=== PATIENT | female | born 1990 | race Caucasian/White ===

== ENCOUNTER 2020-07-05 12:36 | Outpatient (CLI) | payer BC, SELFPAY ==
[2020-07-05 13:17] LABS: SARS-CoV-2 Ag Positive (Negative)
== END 2020-07-05 12:37 | disposition home or self-care (01) ==
LOC: CHSLAB 12:41
PROVIDERS: PCP Physician Assistant; Visit Provider Physician Assistant
DX: U07.1 COVID-19 (principal)
CPT/HCPCS: 87426

== ENCOUNTER 2022-07-16 14:55 | Emergency (ER) | payer BC, SELFPAY ==
[2022-07-16 15:02] VITALS: BP 132/71; PULSE 73; RESP 16; TEMP 37.3; O2SAT 100
--- NOTE | 2022-07-16 15:02 | ED.URI ---
HPI - URI/Sore Throat General Chief Complaint: Ear Stated Complaint: Ear Pain Time Seen by Provider: 07/16/22 15:02 Source: patient and RN notes reviewed History of Present Illness HPI Narrative: Patient is a 32-year-old female who presents to urgent care with left ear throbbing. Patient states she woke up with the pain today. Patient has not done anything for her pain [id number]. No other acute complaints. No acute distress noted. Patient aware of the plan of care. Some parts of this dictation were generated by voice recognition software and may contain typographical and/or grammatical inaccuracies. Related Data Home Medications Medication Instructions Recorded Confirmed No Home Medications 07/16/22 07/16/22 Allergies Allergy/AdvReac Type Severity Reaction Status Date / Time No Known Allergies Allergy Verified 07/16/22 15:10 Review of Systems Review of Systems: CONSTITUTIONAL: Denies fever, chills, or sweats. EYES: Denies visual changes, redness, or discharge. ENT: Denies rhinorrhea, congestion, sore throat . Reports of left otalgia CARDIOVASCULAR: Denies chest pain, palpitations, or edema. RESPIRATORY: Denies cough or dyspnea. GASTROINTESTINAL: Denies abdominal pain, nausea, vomiting, or diarrhea. GENITOURINARY: Denies dysuria or hematuria. SKIN: Denies rash or itching. MUSCULOSKELETAL: Denies back pain, joint pain, or myalgia. NEUROLOGIC: Denies headache, numbness, or weakness. All other systems reviewed are negative, except as documented in HPI. PMFSH Comments At the time of my signature, I reviewed and agree with the nursing past medical, surgical, social, and family history. There is no relevant family history pertinent to the patient complaint. Exam Narrative: GENERAL: This is a well-nourished, well-developed patient, in no apparent distress. HEAD: normocephalic, atraumatic. EYES: PERRL. Sclera clear/white. Vision is grossly intact. EARS: External ears normal, auditory canals clear and without drainage, mild bilateral eustachian tube dysfunction.TMs normal without perforation. Hearing grossly intact. NOSE: External nose normal with no obvious nasal discharge, nares without redness, no rhinorrhea. THROAT: Mucous membranes moist, posterior pharynx clear. Moderate postnasal drainage NECK: Neck supple, non-tender without lymphadenopathy CARDIOVASCULAR: Regular rate and rhythm without murmurs, gallops, or rubs. RESPIRATORY: Clear to auscultation. Breath sounds equal bilaterally. No wheezes, rales, or rhonchi. SKIN: warm, intact with no suspicious lesions or rash, good texture and turgor. NEURO: awake, alert, and oriented to person, place and time. There were no obvious focal neurologic abnormalities. EXTREMITIES: No clubbing, cyanosis, or edema. Course Course Level of Care: Express Care Visit Vital Signs Vital signs: Vital Signs Temperature 99.2 F 07/16/22 15:02 Pulse Rate 73 07/16/22 15:02 Respiratory Rate 16 07/16/22 15:02 Blood Pressure 132/71 07/16/22 15:02 Pulse Oximetry 100 07/16/22 15:02 Oxygen Delivery Room Air 07/16/22 15:02 Temperature 99.2 F 07/16/22 15:02 Pulse Rate 73 07/16/22 15:02 Respiratory Rate 16 07/16/22 15:02 Blood Pressure 132/71 07/16/22 15:02 Pulse Oximetry 100 07/16/22 15:02 Oxygen Delivery Room Air 07/16/22 15:02 reviewed MDM - URI/Sore Throat MDM Narrative Medical decision making narrative: advised patient to take a daily antihistamine such as Claritin or Zyrtec. Use Flonase nasal spray and 25 mg of Benadryl prior to bedtime. Do not put anything in the ears such as Q-tips, peroxide or water. May use a warm compress to the ear and/or Tylenol/ ibuprofen as needed for pain or discomfort. Use a humidifier at night. Follow-up with your PCP within 2-5 days or for worsening symptoms or failure to improve. Differential Diagnosis Differential diagnosis: Likely upper respiratory infection, croup, otitis media,
== END 2022-07-16 15:26 | disposition home or self-care (01) ==
PROVIDERS: Emergency Provider Nurse Practitioner Family
DX: H92.02 Otalgia, left ear (principal)
CPT/HCPCS: 99211; G0463

== ENCOUNTER 2023-07-25 12:16 | Emergency (ER) | payer BC, SELFPAY ==
[2023-07-25 12:21] VITALS: BP 130/68; PULSE 69; RESP 16; TEMP 36.8; O2SAT 97
--- NOTE | 2023-07-25 12:24 | ED.GENADULT ---
HPI - General Adult General Chief complaint: Upper Respiratory Infection Stated complaint: ear infection Source: patient, RN notes reviewed and old records reviewed Mode of arrival: ambulatory Limitations: no limitations History of Present Illness HPI narrative: 33-year-old female presents to [facility] with complaint of left ear pain this started last p.m.. Patient states has had cold symptoms for the last week. Patient taking [id number] medications. MD complaint: Earache Onset (ago): day(s) (1) Related Data Allergies Allergy/AdvReac Type Severity Reaction Status Date / Time No Known Allergies Allergy Verified 07/25/23 12:27 Review of Systems Constitutional: Constitutional: Reports no additional constitutional complaints, Denies body ache(s), Denies chills, Denies fatigue, Denies fever(s) and Denies headache(s) Eyes: Eyes: Reports no additional eye complaints and Denies blurry vision ENT: Reports system reviewed and no additional complaints, except as documented, Denies vertigo, Denies dizziness, Denies ear discharge, Reports otalgia, Denies facial pain, Denies headache(s), Reports nasal congestion, Denies nasal discharge, Denies sinus pain, Denies sinus pressure and Denies sore throat Cardiovascular: Cardiovascular: Reports no additional cardiovascular complaints, Denies chest pain, Denies chest pain at rest, Denies rapid heart rate and Denies dyspnea Respiratory: Respiratory: Reports no additional respiratory complaints, Denies chest congestion, Reports cough, Denies pain on inspiration, Denies pain with cough and Denies dyspnea Gastrointestinal: Gastrointestinal: Denies abdominal pain, Denies diarrhea, Denies nausea and Denies vomiting Integumentary/Breasts: Skin/Breast: Denies rash Neurologic: Reports system reviewed and no additional complaints, except as documented, Denies vertigo, Denies dizziness and Denies headache(s) Endocrine: Endocrine: Denies fatigue PMFSH Comments At the time of my signature, I reviewed and agree with the nursing past medical, surgical, social, and family history. There is no relevant family history pertinent to the patient complaint. Exam Const: General: cooperative, healthy appearing, no acute distress and well nourished Nutritional Appearance: well nourished Orientation/consciousness: patient oriented x3 Limitations: no limitations HENMT: Head: normal to inspection and normocephalic Ears: external ears normal, TM's normal bilaterally, TM normal on the right, mastoids normal, Abnormal EAC present and TM abnormal bulging on the left and erythematous on the left Face/Nose/Sinus: normal facial exam Face and sinus: normal facial exam Mouth: Yes Normal oral and palatal mucosa present, Yes oropharynx normal and Yes moist mucous membranes Throat: tonsils normal, uvula midline and no uvular edema Eyes: General: appearance normal, both eyes and all related structures Sclera: sclerae normal Pupils: Equal, round and reactive pupils present Resp: Effort & Inspection: normal respiratory effort, able to speak in complete sentences, no audible wheezes, no cough, no respiratory distress and no retractions Auscultation: clear to auscultation bilaterally, no crackles, no rales, no rhonchi and no wheezes Cardio: Rate: regular rate Rhythm: regular rhythm Skin: General skin exam: normal color and no rashes or lesions noted Neuro: General: patient oriented x3 Cranial nerves: Yes Equal, round and reactive pupils present Psych: Appearance: grossly normal Mental Status: mental status grossly normal Speech and movement: Normal speech and movement present Affect: normal affect Course Course Emergency Course: Patient is aware of diagnosis, understands and agrees to treatment plan.? Anticipatory guidance given.? Patient agrees to follow-up as directed and is aware of reasons to seek care at the emergency department. Some parts of this dictation were generated by voice recognition software
== END 2023-07-25 12:30 | disposition home or self-care (01) ==
PROVIDERS: Emergency Provider Registered Nurse; PCP Physician Assistant
DX: H66.002 Acute suppurative otitis media without spontaneous rupture of ear drum, left ear (principal)
CPT/HCPCS: 99213; G0463